=== PATIENT | male | born 1980 | race Hispanic/Latino ===

== ENCOUNTER 2017-09-24 00:52 | Inpatient (IN) | payer SELFPAY ==
[~2017-09-24] VITALS: Ht 180.3 cm; Wt 99.8 kg
[2017-09-24] VITALS (7 sets, daily range): BP systolic 110–130; BP diastolic 52–70
[2017-09-24] MEDS ORDERED: ONDANSETRON HCL INJ 2 MG/ML VIAL IV STA (00:59)
[2017-09-24] MEDS ORDERED: PANTOPRAZOLE 40 MG 10ML VIAL IV STA (00:59)
[2017-09-24] MEDS ORDERED: DICYCLOMINE HCL 20 MG/2 ML VIAL IM ONE (01:00)
[2017-09-24] MEDS ORDERED: SODIUM CHLORIDE 0.9% 1000ML 1,000 ML IV ONE (01:00)
[2017-09-24 01:21] LABS: BASOPHILS # (AUTO) 0.1 (0.0-0.1); BASOPHILS % 0.4 % (0.0-1.0); EOSINOPHILS # (AUTO) 0.1 (0.0-0.4); EOSINOPHILS % 0.7 % (0.0-6.0); HEMATOCRIT 44.4 % (38.2-49.6); HEMOGLOBIN 14.8 g/dL (14.0-18.0); LYMPHOCYTES # (AUTO) 2.3 (1.0-3.2); LYMPHOCYTES % 12.5 % (18.0-39.1); MEAN CORPUSCULAR HEMOGLOBIN 28.2 pg (28-32); MEAN CORPUSCULAR HGB CONC 33.3 g/dL (31-35); MEAN CORPUSCULAR VOLUME 84.6 fL (81-99); MONOCYTES % 5.8 % (4.4-11.3); NEUTROPHILS # (AUTO) 14.4 (2.1-6.9); PLATELET COUNT 327 x10e3/uL (140-360); RED BLOOD COUNT 5.25 x10e6/uL (4.3-5.7); RED CELL DISTRIBUTION WIDTH 13.5 % (11.7-14.4)
[2017-09-24 01:23] LABS: CLARITY,URINE CLOUDY (CLEAR); COLOR,URINE YELLOW (YELLOW)
[2017-09-24 01:25] LABS: BILIRUBIN,URINE NEGATIVE (NEGATIVE); KETONES,URINE NEGATIVE (NEGATIVE); LEUKOCYTE ESTERASE ,URINE NEGATIVE (NEGATIVE); NITRITE,URINE NEGATIVE (NEGATIVE); PROTEIN,URINE DIPSTICK TRACE (NEGATIVE); URINE UROBILINOGEN 0.2 mg/dL (0.2 - 1)
[2017-09-24 01:31] LABS: AMORPHOUS SEDIMENT,URINE MODERATE (FEW); EPITHELIAL CELLS,URINE FEW /LPF; RBC,URINE 0-5 /HPF (0-5); WBC,URINE (MAN) 0-5 /HPF (0-5)
[2017-09-24 01:35] LABS: ALANINE AMINOTRANSFERASE 50 IU/L (0-55); ALKALINE PHOSPHATASE 102 IU/L (40-150); AMYLASE 122 U/L (25-125); ANION GAP 14.8 mmol/L (8-16); BLOOD UREA NITROGEN 14 mg/dL (7-26); BUN/CREATININE RATIO 18 (6-25); CALCIUM 9.7 mg/dL (8.4-10.2); CARBON DIOXIDE 22 mmol/L (22-29); CHLORIDE 106 mmol/L (98-107); CREATININE, SERUM 0.79 mg/dL (0.72-1.25); EST GLOMERULAR FILTRATION RATE > 60 ML/MIN (60-); GLUCOSE 122 mg/dL (74-118); LIPASE 21 U/L (8-78); POTASSIUM 3.8 mmol/L (3.5-5.1); SODIUM 139 mmol/L (136-145)
[2017-09-24] MEDS ORDERED: SODIUM CHLORIDE 0.9% 50ML 50 ML ONE (01:58)
[2017-09-24] MEDS ORDERED: IOPAMIDOL 370 MG/ML 200 ML INFUS..BTL INJ ONE (01:58)
--- NOTE | 2017-09-24 02:48 | Diagnostic Imaging Report ---
EXAM: CT Abdomen and Pelvis WITH contrast INDICATION: Abdominal pain, right side COMPARISON: None. TECHNIQUE: Abdomen and pelvis were scanned utilizing a multidetector helical scanner from the lung base to the pubic symphysis after administration of IV contrast. Coronal and sagittal reformations were obtained. Routine protocol was performed. Scan was performed when during portal venous phase. IV CONTRAST: 100 mL of Isovue-370 ORAL CONTRAST: Water RADIATION DOSE: Total DLP: 738.23 mGy*cm Estimated effective dose: (DLP x 0.015 x size factor) mSv COMPLICATIONS: None FINDINGS: LINES and TUBES: None. LOWER THORAX: Unremarkable HEPATOBILIARY: No focal hepatic lesions. No biliary ductal dilation. GALLBLADDER: No radio-opaque stones or sludge. No wall thickening. SPLEEN: No splenomegaly. PANCREAS: No focal masses or ductal dilatation. ADRENALS: No adrenal nodules KIDNEYS/URETERS: Kidneys enhance symmetrically. No hydronephrosis. No cystic or solid mass lesions. No stones. GI TRACT: The appendix measures 8.2 mm in diameter with evidence of periappendiceal fat stranding compatible with acute appendicitis. PELVIC ORGANS/BLADDER: Unremarkable. LYMPH NODES: No lymphadenopathy. VESSELS: Unremarkable. PERITONEUM / RETROPERITONEUM: No free air or fluid. BONES: Unremarkable. SOFT TISSUES: Unremarkable. IMPRESSION: 1. Findings are compatible with retrocecal acute appendicitis without complication. Signed by: Dr. Conor Brito M.D. on 09/24/2017 2:44 AM
[2017-09-24] MEDS ORDERED: SODIUM CHLORIDE 0.9% 1000ML 1,000 ML ONE (02:59)
[2017-09-24] MEDS ORDERED: CEFOXITIN 1GM/ DEXTROSE 50ML 50 ML IV SCH (03:00)
[2017-09-24] MEDS ORDERED: METRONIDAZOLE 500MG/NS 100ML 100 ML IV SCH (03:00)
[2017-09-24] MEDS ORDERED: CEFOXITIN SOD 1 GM VIAL ONE (03:11)
[2017-09-24] MEDS ORDERED: MORPHINE SULFATE 2 MG/ML SYR IV PRN (03:15)
[2017-09-24] MEDS ORDERED: ACETAMINOPHEN 325 MG TAB PO PRN (03:15)
[2017-09-24] MEDS ORDERED: ONDANSETRON HCL INJ 2 MG/ML VIAL IV PRN (03:15)
[2017-09-24] MEDS: SODIUM CHLORIDE 0.9% 1000ML 1,000 ML IV SCH ×3 (03:18→18:04)
[2017-09-24] MEDS ORDERED: OMEPRAZOLE40 MG PO (04:41)
[2017-09-24] MEDS: CEFOXITIN 1GM/ DEXTROSE 50ML 50 ML IV SCH ×3 (09:51→21:30)
[2017-09-24] MEDS: METRONIDAZOLE 500MG/NS 100ML 100 ML IV SCH ×3 (10:53→20:54)
[2017-09-24] MEDS ORDERED: FENTANYL CITRATE/PF 100MCG/2 ML INJ ONE ×2 (11:07→13:29)
[2017-09-24] MEDS ORDERED: MIDAZOLAM HCL 2 MG/2 ML VIAL ONE (11:08)
[2017-09-24] MEDS ORDERED: BUPIVACAINE 0.25% 30ML SDV INJ ONE (11:12)
--- NOTE | 2017-09-24 13:36 | Diagnostic Imaging Report ---
Examination: Single AP view of the chest. COMPARISON: Postop appendicitis INDICATION: Postoperative evaluation DISCUSSION: Lines/tubes: None. Lungs: Low lung volumes with lower lung and perihilar opacities. Pleura: There is no pleural effusion or pneumothorax. Heart and mediastinum: Prominent heart size accentuated by AP portable technique. Bones and soft tissues: No acute bony abnormalities. IMPRESSION: Low lung volumes with lower lung opacities likely atelectasis. Correlate for pneumonia. Signed by: Dr. Sylvester Bueno M.D. on 09/24/2017 1:32 PM
[2017-09-24] MEDS ORDERED: MORPHINE SULFATE 2 MG/ML SYR ONE (13:51)
--- NOTE | 2017-09-24 14:08 | Operative Report ---
DATE OF PROCEDURE: September 24, 2017 PREOPERATIVE DIAGNOSIS: Retrocecal acute appendicitis. POSTOPERATIVE DIAGNOSIS: Acute retrocecal and retroperitoneal appendicitis. PROCEDURE PERFORMED: Laparoscopic appendectomy and irrigation. FISHER: None. ESTIMATED BLOOD LOSS: Minimal. DRAINS: None. COMPLICATIONS: None. INDICATIONS AND FINDINGS: This 37-year-old male was admitted with abdominal pain that had begun the day prior to admission localizing to the right lower quadrant. The patient came to the emergency [facility] at [facility] where a CT scan revealed acute retrocecal appendicitis. INTRAOPERATIVE FINDINGS: Acute retrocecal and retroperitoneal appendicitis. There was a mild exudate overlying the retrocecal appendix. There was no gross perforation or free fluid. DESCRIPTION OF PROCEDURE: With the patient lying on the operative table in the supine position, after administration of general anesthesia, he was prepped and draped for laparoscopic appendectomy. The procedure was begun by establishing a pneumoperitoneum in the right upper quadrant mid-clavicular line and then introducing the camera under direct vision. We then placed an 11-12 trocar in the umbilical site and finally 2 extra ports in the right lower quadrant and left lower quadrant using 5-mm trocars only. After we went ahead and did that, we identified the anatomy as previously described, incised the lateral peritoneum along the white line of Toldt, and then exposed the thickened, inflamed, retrocecal appendix. After we mobilized the cecum and ascending colon, we transected the mesoappendix with the vascular load twice. Then we were able to expose the appendiceal-cecal junction which at that point allowed us to transect the appendix with the blue load using the Endo MIREYA also. After we did that, we placed the appendix in an Endo bag and removed it through the umbilical port. After we did that, we copiously irrigated the operative field. We ascertained there was no bleeding. No evidence of fecal or bowel content spillage. At this point, after the copious irrigation and aspiration of all the effluent, we went ahead and removed the appendix, after placing in an Endo bag and removed it through the umbilical port. We released the pneumoperitoneum and then closed the wounds using #0 Vicryl for umbilical fascia, 3-0 Vicryl for the subcutaneous tissue in that location as well as the subxiphoid port, and the skin of all the ports was closed using meliza. Marcaine 0.25% with epinephrine was given as a local block at the end of the case. Patient tolerated the procedure well and was taken to the recovery room in stable condition. Job#: [id number]
[2017-09-24] MEDS ORDERED: ONDANSETRON HCL INJ 2 MG/ML VIAL ONE (15:14)
[2017-09-24] MEDS ORDERED: DEXAMETHASONE SOD PHOS INJ 4 MG/ML VIAL ONE (15:14)
[2017-09-24] MEDS ORDERED: SUCCINYLCHOLINE 200 MG/10 ML SYR ONE (15:14)
[2017-09-24] MEDS ORDERED: ROCURONIUM BROMIDE 10 MG/ML 5ML VIAL ONE (15:14)
[2017-09-24] MEDS ORDERED: DESFLURANE 240 ML BTL INH ONE (15:14)
[2017-09-24] MEDS: HYDROCODONE/APAP 7.5MG-325MG 1 EA TAB PO PRN (20:57)
[2017-09-25] MEDS: CEFOXITIN 1GM/ DEXTROSE 50ML 50 ML IV SCH ×3 (03:05→14:00)
[2017-09-25] MEDS: METRONIDAZOLE 500MG/NS 100ML 100 ML IV SCH ×3 (03:05→14:00)
[2017-09-25] MEDS: SODIUM CHLORIDE 0.9% 1000ML 1,000 ML IV SCH ×2 (03:05→11:09)
[2017-09-25 04:00] VITALS: BP 122/60
[2017-09-25] MEDS: HYDROCODONE/APAP 7.5MG-325MG 1 EA TAB PO PRN (04:15)
[2017-09-25 06:43] LABS: BASOPHILS % 0.3 % (0.0-1.0); EOSINOPHILS # (AUTO) 0.1 (0.0-0.4); EOSINOPHILS % 0.7 % (0.0-6.0); HEMATOCRIT 38.5 % (38.2-49.6); HEMOGLOBIN 12.9 g/dL (14.0-18.0); LYMPHOCYTES # (AUTO) 2.6 (1.0-3.2); LYMPHOCYTES % 16.8 % (18.0-39.1); MEAN CORPUSCULAR HEMOGLOBIN 28.4 pg (28-32); MEAN CORPUSCULAR HGB CONC 33.5 g/dL (31-35); MEAN CORPUSCULAR VOLUME 84.6 fL (81-99); MONOCYTES # (AUTO) 1.3 (0.2-0.8); MONOCYTES % 8.2 % (4.4-11.3); NEUTROPHILS # (AUTO) 11.2 (2.1-6.9); NEUTROPHILS % 73.5 % (38.7-80.0); PLATELET COUNT 263 x10e3/uL (140-360); RED BLOOD COUNT 4.55 x10e6/uL (4.3-5.7); RED CELL DISTRIBUTION WIDTH 13.8 % (11.7-14.4)
[2017-09-25 07:12] LABS: ALANINE AMINOTRANSFERASE 30 IU/L (0-55); ALBUMIN/GLOBULIN RATIO 0.9 (0.8-2.0); ALKALINE PHOSPHATASE 74 IU/L (40-150); ANION GAP 9.7 mmol/L (8-16); BLOOD UREA NITROGEN 10 mg/dL (7-26); BUN/CREATININE RATIO 14 (6-25); CALCIUM 8.6 mg/dL (8.4-10.2); CARBON DIOXIDE 23 mmol/L (22-29); CHLORIDE 110 mmol/L (98-107); CREATININE, SERUM 0.73 mg/dL (0.72-1.25); EST GLOMERULAR FILTRATION RATE > 60 ML/MIN (60-); GLUCOSE 95 mg/dL (74-118); POTASSIUM 3.7 mmol/L (3.5-5.1); SODIUM 139 mmol/L (136-145)
[2017-09-25 07:13] LABS: ALBUMIN 3.1 g/dL (3.5-5.0)
[2017-09-25 08:14] VITALS: BP 116/62
[2017-09-25 08:57] VITALS: BP 116/62
[2017-09-25] MEDS ORDERED: CIPRO500 MG PO (12:40)
[2017-09-25] MEDS ORDERED: TYLENOL WITH C1 EACH PO (12:40)
== END 2017-09-25 15:15 | disposition home or self-care (01) | DRG 343 ==
LOC: ER 00:52 → ERHOLD 03:08 → MED/SURG 03:49
PROVIDERS: ADMIT Surgery; ATTEND Surgery
PROC: 0DTJ4ZZ Resection of Appendix, Percutaneous Endoscopic Approach (ICD-10-PCS; principal; 2017-09-24 11:30)
DX: K35.80 Unspecified acute appendicitis (principal); K21.9 Gastro-esophageal reflux disease without esophagitis
CPT/HCPCS: 36415; 71045; 74177; 80053; 81001; 82150; 83690; 85025; 88304; 96372; 96374; 99284; C1766; J0500; J0694; J1100; J2250; J2270; J2405; J7030; Q9967